=== PATIENT | male | born 1965 | race Two or more races ===

== ENCOUNTER 2023-08-23 14:31 | Emergency (ER) | payer OTHER ==
[~2023-08-23] VITALS: Ht 165.1 cm; Wt 86.4 kg
[2023-08-23] MEDS ORDERED: CEPH-585 PO (15:48)
[2023-08-23] MEDS ORDERED: tetanus & diphtheria toxoid (Td) vaccine 0.5ml IMVAC ONE (15:50)
[2023-08-23] MEDS ORDERED: TETanus/Pertussis (Acell)/Diphther VAC/PF (Tdap-Adult) 0.5ml syringe IMVAC ONE (16:00)
[2023-08-23 16:02] VITALS: BP 122/60; PULSE 80; RESP 14; TEMP 98; O2SAT 98
== END 2023-08-23 17:48 | disposition home or self-care (01) ==
LOC: EEVIPCON 14:31 → ER 14:31
DX: S61.215A Laceration without foreign body of left ring finger without damage to nail, initial encounter (principal); S61.213A Laceration without foreign body of left middle finger without damage to nail, initial encounter; Z23 Encounter for immunization; W26.8XXA Contact with other sharp object(s), not elsewhere classified, initial encounter; Y93.89 Activity, other specified; Y92.89 Other specified places as the place of occurrence of the external cause; Y99.8 Other external cause status
CPT/HCPCS: 90471; 90715; 99283; A6449